=== PATIENT | female | born 1955 | race Caucasian/White ===

== ENCOUNTER → 2021-08-19 | Outpatient (CLI) | payer BC | LOC: US 14:00 | DX: M79.631 Pain in right forearm (principal); R23.8 Other skin changes; C50.412 Malignant neoplasm of upper-outer quadrant of left female breast; Z79.890 Hormone replacement therapy; M85.89 Other specified disorders of bone density and structure, multiple sites; Z80.3 Family history of malignant neoplasm of breast | CPT/HCPCS: 93971 ==